=== PATIENT | female | born 1975 | race Caucasian/White ===

== ENCOUNTER 2019-10-24 23:05 | Emergency (ER) | payer OTHER ==
[2019-10-24] MEDS ORDERED: Ondansetron 4 MG/2 ML SDV IVPUSH ONE (23:39)
[2019-10-24] MEDS ORDERED: Sodium Chloride 0.9% 1,000 ML IV ONE (23:39)
[2019-10-24] MEDS ORDERED: Sodium Chloride 0.9% 2.5 ML Syringe FLUSH PRN (23:39)
[2019-10-24] MEDS ORDERED: Sodium Chloride 0.9% 10 ML Syringe FLUSH PRN (23:39)
--- NOTE | 2019-10-24 23:44 | EDM.PDOC ---
ED HPI GENERAL MEDICAL PROBLEM - General Chief Complaint: Gastrointestinal Problem Stated Complaint: FLU LIKE SYMPTOMS Time Seen by Provider: 10/24/19 23:14 - History of Present Illness INITIAL COMMENTS - FREE TEXT/NARRATIVE: HISTORY AND PHYSICAL: History of present illness: The patient is a 44-year-old female who is a 3 para 1011 at approximate 22 weeks gestation and who follows with a Dr. Galdamez in [facility] as well as Dr. Danielle who is a maternal specialist in [place] due to her advanced maternal age and type 2 diabetes and who presents with a less than 24 hours of intractable vomiting and diarrhea. The patient says that when she is she is insulin-dependent and that is not new or different that her blood sugars have been variable because of the vomiting and inability to take fluids and by mouth and when she does take applesauce or other bland foods it drives her sugar up. She has had watery diarrhea all day today with the vomiting and has felt feverish but doesn't have a documented fever. She's had no urinary complaints and only lower abdominal cramping. She's had no vaginal bleeding and the baby is very active. Initially when she presented to triage labor and delivery was contacted and they requested that we see her down here in the emergency department and will be available. The patient was made aware of that. She has no cough or upper respiratory symptoms no shortness of breath sore throat or runny nose. The patient also complains of diffuse bodyaches and malaise Review of systems: As per history of present illness and below otherwise all systems reviewed and negative. Past medical history: As per history of present illness and as reviewed below otherwise noncontributory. Surgical history: As per history of present illness and as reviewed below otherwise noncontributory. Social history: No reported history of drug or alcohol abuse. Family history: As per history of present illness and as reviewed below otherwise noncontributory. Physical exam: General: Well-developed well-nourished female who is nontoxic and vital signs are noted by me. HEENT: Atraumatic, normocephalic, pupils reactive, negative for conjunctival pallor or scleral icterus, mucous membranes a little tachycardia, throat clear, neck supple, nontender, trachea midline. On the lower lip there is the start of a small vesicular lesion consistent with a cold sore that the patient says started about 3 days ago Lungs: Clear to auscultation, breath sounds equal bilaterally, chest nontender. Heart: S1S2, regular rhythm and sightly tachycardic rate on my evaluation, negative for clicks, rubs, or JVD. Abdomen: Soft, nondistended, minimal suprapubic tenderness without rebound or guarding Negative for masses or hepatosplenomegaly. Negative for costovertebral tenderness. Pelvis: Stable nontender. Genitourinary: Deferred. Rectal: Deferred. Extremities: Atraumatic, negative for cords or calf pain. Neurovascular unremarkable. Neuro: Awake, alert, oriented. Cranial nerves II through XII unremarkable. Cerebellum unremarkable. Motor and sensory unremarkable throughout. Exam nonfocal. Diagnostics: CBC CMP venous blood gas magnesium level UA with reflex lipase stool for culture and study if patient produces, influenza serum ketones lactic acid Labor and delivery to come to do heart tones and there second trimester evaluation Therapeutics: IV fluids Zofran heart tones per labor and delivery were 146 The patient is feeling a bit better and would like to start some ice chips. Her base deficit was -5 and we will continue with IV fluids I discussed testing results with patient and significant other bedside. She is saying that with a second liter of fluid she is feeling significantly better and has no cramping and no body aches and is taking ice chips without vomiting. She would like some Zofran for home and declines Bentyl at this time. I've advised her to follow-up with her provider and have a dialogue in the morning about tonight's events. She has not produced a stool since she has been here. Impression: Vomiting and diarrhea, dehydration improved Second trimester stable Definitive disposition and diagnosis as appropriate pending reevaluation and review of above. Bilateral Abdominal Pain Score (Numeric/FACES): 7 - Related Data Allergies Allergy/AdvReac Type Severity Reaction Status Date / Time latex Allergy Itching Verified 10/24/19 23:50 Tetanus Vaccines and Toxoid Allergy Other Verified 10/24/19 23:50 Home Meds: Home Meds Insulin Detemir [Levemir Flextouch] 100 unit SQ DAILY 10/24/19 [History] Insulin Lispro [HumaLOG] 1 unit SQ ASDIRECTED 10/24/19 [History] Labetalol [Normodyne] 100 mg PO BID 10/24/19 [History] No122/Iron/Folic Acid [ Multi Tablet] 1 each PO DAILY 10/24/19 [History] metFORMIN [Glucophage XR] 1,000 mg PO TID 10/24/19 [History] ED ROS GENERAL - Review of Systems Review Of Systems: Comprehensive ROS is negative, except as noted in HPI. ED EXAM, GENERAL - Physical Exam Exam: See Below (see Dictation) Course - Vital Signs Last Recorded V/S: Last Vital Signs Temp 36.5 C 10/24/19 23:31 Pulse 110 H 10/24/19 23:31 Resp 18 10/24/19 23:31 BP 145/77 H 10/24/19 23:31 Pulse Ox 96 10/24/19 23:31 - Orders/Labs/Meds Orders: Active Orders 24 hr Category Date Time Status Communication Order [RC] STAT Care 10/24/19 23:40 Active CULTURE STOOL + CAMPY+SHIGATOX [RM] Stat Lab 10/24/19 23:39 Ordered CULTURE URINE [RM] Stat Lab 10/24/19 23:34 Received Sodium Chloride 0.9% [Normal Saline] 1,000 ml Med 10/25/19 00:44 Active IV .Bolus Sodium Chloride 0.9% [Saline Flush] Med 10/24/19 23:39 Active 10 ml FLUSH ASDIRECTED PRN Sodium Chloride 0.9% [Saline Flush] Med 10/24/19 23:39 Active 2.5 ml FLUSH ASDIRECTED PRN Saline Lock Insert [OM.PC] Stat Oth 10/24/19 23:38 Ordered Medication Orders Sodium Chloride (Normal Saline) 1,000 mls @ 999 mls/hr IV .Bolus ONE Stop: 10/25/19 01:44 Last Admin: 10/25/19 00:45 Dose: 999 mls/hr Sodium Chloride (Saline Flush) 10 ml FLUSH ASDIRECTED PRN PRN Reason: Keep Vein Open Sodium Chloride (Saline Flush) 2.5 ml FLUSH ASDIRECTED PRN PRN Reason: Keep Vein Open Labs: Laboratory Tests 10/24/19 10/24/19 10/24/19 Range/Units 23:34 23:34 23:34 WBC 10.32 (4.0-11.0) K/uL RBC 3.99 L (4.30-5.90) M/uL Hgb 11.3 L (12.0-16.0) g/dL Hct 34.2 L (36.0-46.0) % MCV 85.7 (80.0-98.0) fL MCH 28.3 (27.0-32.0) pg MCHC 33.0 (31.0-37.0) g/dL RDW Std Deviation 45.4 (28.0-62.0) fl RDW Coeff of Melissa 15 (11.0-15.0) % Plt Count 271 (150-400) K/uL MPV 9.30 (7.40-12.00) fL Neut % (Auto) 92.7 H (48.0-80.0) % Lymph % (Auto) 4.1 L (16.0-40.0) % [place] % (Auto) 2.8 (0.0-15.0) % Eos % (Auto) 0.3 (0.0-7.0) % Baso % (Auto) 0.1 (0.0-1.5) % Neut # (Auto) 9.6 H (1.4-5.7) K/uL Lymph # (Auto) 0.4 L (0.6-2.4) K/uL [place] # (Auto) 0.3 (0.0-0.8) K/uL Eos # (Auto) 0.0 (0.0-0.7) K/uL Baso # (Auto) 0.0 (0.0-0.1) K/uL Nucleated RBC % 0.0 /100WBC Nucleated RBCs # 0 K/uL VBG pH (7.31-7.41) VBG pCO2 (35-45) mmHG VBG pO2 (30-40) mmHG VBG HCO3 (22-30) mEq/L VBG Total CO2 (41-51) mmol/L VBG Base Excess (-3.0-3.0) Lactate (0.20-2.00) mmol/L Sodium 134 L (136-145) mmol/L Potassium 3.7 (3.5-5.1) mmol/L Chloride 101 (98-107) mmol/L Carbon Dioxide 19.2 L (21.0-32.0) mmol/L BUN 8 (7.0-18.0) mg/dL Creatinine 0.7 (0.6-1.0) mg/dL Est Cr Clr Drug Dosing TNP Estimated GFR (MDRD) > 60.0 ml/min Glucose 155 H (74-106) mg/dL Calcium 8.9 (8.5-10.1) mg/dL Magnesium 1.6 L (1.8-2.4) mg/dL Total Bilirubin 0.3 (0.2-1.0) mg/dL AST 17 (15-37) IU/L ALT 21 (14-63) IU/L Alkaline Phosphatase 61 (46-116) U/L Total Protein 7.7 (6.4-8.2) g/dL Albumin 3.0 L (3.4-5.0) g/dL Globulin 4.7 H (2.6-4.0) g/dL Albumin/Globulin Ratio 0.6 L (0.9-1.6) Lipase 97 (73-393) U/L Urine Color YELLOW Urine Appearance CLEAR Urine pH 6.0 (5.0-8.0) Ur Specific [place] 1.010 (1.001-1.035) Urine Protein NEGATIVE (NEGATIVE) mg/dL Urine Glucose (UA) NEGATIVE (NEGATIVE) mg/dL Urine Ketones 15 H (NEGATIVE) mg/dL Urine Occult Blood NEGATIVE (NEGATIVE) Urine Nitrite NEGATIVE (NEGATIVE) Urine Bilirubin NEGATIVE (NEGATIVE) Urine Urobilinogen 0.2 (<2.0) EU/dL Ur Leukocyte Esterase SMALL H (NEGATIVE) Urine RBC 0-1 (0-2/HPF) Urine WBC 1-2 (0-5/HPF) Ur Epithelial Cells RARE (NONE-FEW) Urine Bacteria RARE (NEGATIVE) Ketones (NEG) 10/24/19 10/24/19 10/24/19 Range/Units 23:34 23:34 23:34 WBC (4.0-11.0) K/uL RBC (4.30-5.90) M/uL Hgb (12.0-16.0) g/dL Hct (36.0-46.0) % MCV (80.0-98.0) fL MCH (27.0-32.0) pg MCHC (31.0-37.0) g/dL RDW Std Deviation (28.0-62.0) fl RDW Coeff of Melissa (11.0-15.0) % Plt Count (150-400) K/uL MPV (7.40-12.00) fL Neut % (Auto) (48.0-80.0) % Lymph % (Auto) (16.0-40.0) % [place] % (Auto) (0.0-15.0) % Eos % (Auto) (0.0-7.0) % Baso % (Auto) (0.0-1.5) % Neut # (Auto) (1.4-5.7) K/uL Lymph # (Auto) (0.6-2.4) K/uL [place] # (Auto) (0.0-0.8) K/uL Eos # (Auto) (0.0-0.7) K/uL Baso # (Auto) (0.0-0.1) K/uL Nucleated RBC % /100WBC Nucleated RBCs # K/uL VBG pH 7.45 H (7.31-7.41) VBG pCO2 25 L (35-45) mmHG VBG pO2 60 H (30-40) mmHG VBG HCO3 17 L (22-30) mEq/L VBG Total CO2 16 L (41-51) mmol/L VBG Base Excess -5.1 L (-3.0-3.0) Lactate 1.8 (0.20-2.00) mmol/L Sodium (136-145) mmol/L Potassium (3.5-5.1) mmol/L Chloride (98-107) mmol/L Carbon Dioxide (21.0-32.0) mmol/L BUN (7.0-18.0) mg/dL Creatinine (0.6-1.0) mg/dL Est Cr Clr Drug Dosing Estimated GFR (MDRD) ml/min Glucose (74-106) mg/dL Calcium (8.5-10.1) mg/dL Magnesium (1.8-2.4) mg/dL Total Bilirubin (0.2-1.0) mg/dL AST (15-37) IU/L ALT (14-63) IU/L Alkaline Phosphatase (46-116) U/L Total Protein (6.4-8.2) g/dL Albumin (3.4-5.0) g/dL Globulin (2.6-4.0) g/dL Albumin/Globulin Ratio (0.9-1.6) Lipase (73-393) U/L Urine Color Urine Appearance Urine pH (5.0-8.0) Ur Specific [place] (1.001-1.035) Urine Protein (NEGATIVE) mg/dL Urine Glucose (UA) (NEGATIVE) mg/dL Urine Ketones (NEGATIVE) mg/dL Urine Occult Blood (NEGATIVE) Urine Nitrite (NEGATIVE) Urine Bilirubin (NEGATIVE) Urine Urobilinogen (<2.0) EU/dL Ur Leukocyte Esterase (NEGATIVE) Urine RBC (0-2/HPF) Urine WBC (0-5/HPF) Ur Epithelial Cells (NONE-FEW) Urine Bacteria (NEGATIVE) Ketones NEGATIVE (NEG) Meds: Medications Generic Name Dose Route Start Last Admin Trade Name Freq PRN Reason Stop Dose Admin Sodium Chloride 1,000 mls @ 999 mls/hr 10/25/19 00:44 10/25/19 00:45 Normal Saline IV 10/25/19 01:44 999 mls/hr .Bolus ONE Administration Sodium Chloride 10 ml 10/24/19 23:39 Saline Flush FLUSH ASDIRECTED PRN Keep Vein Open Sodium Chloride 2.5 ml 10/24/19 23:39 Saline Flush FLUSH ASDIRECTED PRN Keep Vein Open Discontinued Medications Generic Name Dose Route Start Last Admin Trade Name Freq PRN Reason Stop Dose Admin Sodium Chloride 1,000 mls @ 999 mls/hr 10/24/19 23:39 10/24/19 23:44 Normal Saline IV 10/25/19 00:39 999 mls/hr STAT ONE Administration Ondansetron HCl 4 mg 10/24/19 23:39 10/24/19 23:44 Zofran IVPUSH 10/24/19 23:40 4 mg ONETIME ONE Administration Departure - Departure Time of Disposition: 01:04 Disposition: Home, Self-Care 01 Condition: Good Clinical Impression: Nausea vomiting and diarrhea, Second trimester , Dehydration - Discharge Information Referrals: PCP,Not In Area [Primary Care Provider] - Forms: ED Department Discharge Additional Instructions: The following information is given to patients seen in the emergency department who are being discharged to home. This information is to outline your options for follow-up care. We provide all patients seen in our emergency department with a follow-up referral. The need for follow-up, as well as the timing and circumstances, are variable depending upon the specifics of your emergency department visit. If you don't have a primary care physician on staff, we will provide you with a referral. We always advise you to contact your personal physician following an emergency department visit to inform them of the circumstance of the visit and for follow-up with them and/or the need for any referrals to a consulting specialist. The emergency department will also refer you to a specialist when appropriate. This referral assures that you have the opportunity for followup care with a specialist. All of these measure are taken in an effort to provide you with optimal care, which includes your followup. Under all circumstances we always encourage you to contact your private physician who remains a resource for coordinating your care. When calling for followup care, please make the office aware that this follow-up is from your recent emergency room visit. If for any reason you are refused follow-up, please contact the [facility] emergency department at and ask to speak to the emergency department charge nurse. [facility] [id number] [address] Use Zofran you have been given from [facility] for nausea and vomiting and push hydration. Diarrhea may continue for the next several days so continue to monitor that output and use any [id number] preps your provider approves. Please discuss with your OB M.D. tonight the events and any other symptomatic management that they recommend. Return to ER as needed and as discussed. - My Orders Last 24 Hours: My Active Orders 10/24/19 23:34 CULTURE URINE [RM] Stat 10/24/19 23:38 Saline Lock Insert [OM.PC] Stat 10/24/19 23:39 CULTURE STOOL + CAMPY+SHIGATOX [RM] Stat Sodium Chloride 0.9% [Saline Flush] 10 ml FLUSH ASDIRECTED PRN Sodium Chloride 0.9% [Saline Flush] 2.5 ml FLUSH ASDIRECTED PRN 10/24/19 23:40 Communication Order [RC] STAT 10/25/19 00:44 Sodium Chloride 0.9% [Normal Saline] 1,000 ml IV .Bolus - Assessment/Plan Last 24 Hours: My Active Orders 10/24/19 23:34 CULTURE URINE [RM] Stat 10/24/19 23:38 Saline Lock Insert [OM.PC] Stat 10/24/19 23:39 CULTURE STOOL + CAMPY+SHIGATOX [RM] Stat Sodium Chloride 0.9% [Saline Flush] 10 ml FLUSH ASDIRECTED PRN Sodium Chloride 0.9% [Saline Flush] 2.5 ml FLUSH ASDIRECTED PRN 10/24/19 23:40 Communication Order [RC] STAT 10/25/19 00:44 Sodium Chloride 0.9% [Normal Saline] 1,000 ml IV .Bolus
[2019-10-25 00:18] LABS: BLOOD UREA NITROGEN,BUN 8 mg/dL (7.0-18.0); CARBON DIOXIDE,CO2 19.2 mmol/L (21.0-32.0); CHLORIDE,CL 101 mmol/L (98-107); GLUCOSE RANDOM 155 mg/dL (74-106); LIPASE 97 U/L (73-393); POTASSIUM,K 3.7 mmol/L (3.5-5.1); SODIUM,NA 134 mmol/L (136-145)
[2019-10-25] MEDS ORDERED: Sodium Chloride 0.9% 1,000 ML IV ONE (00:44)
[2019-10-25] MEDS ORDERED: Dicyclomine 10 MG Cap PO ONE (01:43)
== END 2019-10-25 01:55 | disposition home or self-care (01) ==
LOC: MW.ED 23:05
DX: O21.9 Vomiting of pregnancy, unspecified (principal); O99.282 Endocrine, nutritional and metabolic diseases complicating pregnancy, second trimester; E86.0 Dehydration; O99.89 Other specified diseases and conditions complicating pregnancy, childbirth and the puerperium; R19.7 Diarrhea, unspecified; Z91.040 Latex allergy status; Z88.7 Allergy status to serum and vaccine
CPT/HCPCS: 36415; 80053; 81001; 82009; 82803; 82962; 83605; 83690; 83735; 85025; 87086; 87804; 96361; 96374; 99284; A9270; J2405; J7030